=== PATIENT | female | born 1925 | race Caucasian/White ===

== ENCOUNTER 2016-11-04 08:59 | Outpatient (CLI) | payer MEDICARE ==
[2016-11-04 12:39] LABS: #Eosinphils 0.1 thou/uL (0.0-0.7); #Lymphocytes 2.4 thou/uL (1.20-3.40); #Monocytes 0.6 thou/uL (0.11-0.59); #Neutrophils 2.6 thou/uL (1.40-6.50); %Basophils 0.6 % (0.0-1.0); %Eosinophils 1.3 % (0.0-10.0); %Lymphocytes 42.1 % (21.0-51.0); %Monocytes 10.5 % (0.0-10.0); Hematocrit 40.1 % (36.0-47.0); Mean Platelet Volume 6.4 fL (7.4-10.4); Red Blood Cell (RBC) Count 4.38 mill/uL (4.20-5.40); White Blood Cell (WBC) Count 5.7 thou/uL (4.8-10.8)
[2016-11-04 13:08] LABS: ALT (SGPT) 11 U/L (0-55); AST (SGOT) 22 U/L (5-34); Alkaline Phosphatase 67 U/L (40-150); Anion Gap 14 mmol/L (10-20); BUN (Urea Nitrogen) 16 mg/dL (9.8-20.1); Bilirubin, Direct 0.2 mg/dL (0.1-0.3); Bilirubin, Total 0.4 mg/dL (0.2-1.2); Calc. Creatinine Clearance 0 mL/min (70-130); Calcium 9.1 mg/dL (7.8-10.44); Carbon Dioxide 25 mmol/L (23-31); Chloride 102 mmol/L (98-107); Estimated GFR-MDRD 59; LDL Cholesterol, Calculated 91 mg/dL; Protein, Total 7.5 g/dL (5.8-8.1)
[2016-11-04 13:11] LABS: Hemoglobin A1c 5.5 % (4.0-6.0)
== END 2016-11-04 09:00 | disposition home or self-care (01) ==
LOC: NAVSJIPCSP 08:59
PROVIDERS: ATTEND Family Medicine
DX: E03.9 Hypothyroidism, unspecified (principal); R53.83 Other fatigue; R35.0 Frequency of micturition; E55.9 Vitamin D deficiency, unspecified; Z79.899 Other long term (current) drug therapy
CPT/HCPCS: 36415; 80048; 80061; 80076; 83036; 84443; 85025

== ENCOUNTER 2017-03-05 09:57 | Outpatient (CLI) | payer MEDICARE ==
[2017-03-05 12:59] LABS: #Eosinphils 0.1 thou/uL (0.0-0.7); #Lymphocytes 2.4 thou/uL (1.20-3.40); #Monocytes 0.5 thou/uL (0.11-0.59); #Neutrophils 1.8 thou/uL (1.40-6.50); %Basophils 0.5 % (0.0-1.0); %Eosinophils 1.6 % (0.0-10.0); %Lymphocytes 49.6 % (21.0-51.0); %Monocytes 10.7 % (0.0-10.0); %Neutrophils 37.5 % (42.0-75.0); Hemoglobin 11.7 g/dL (12.0-16.0); Mean Corpuscular HGB CONC 31.9 g/dL (32.0-36.0); Mean Corpuscular Hemoglobin 28.4 pg (27.0-31.0); Mean Corpuscular Volume 89.3 fl (81.0-99.0); Mean Platelet Volume 6.1 fL (7.4-10.4); Platelet Count 276 thou/uL (130-400); RBC Distribution Width 13.6 % (11.5-14.5); Red Blood Cell (RBC) Count 4.13 mill/uL (4.20-5.40); White Blood Cell (WBC) Count 4.9 thou/uL (4.8-10.8)
[2017-03-05 13:20] LABS: Hemoglobin A1c 5.7 % (4.0-6.0)
[2017-03-05 13:32] LABS: ALT (SGPT) 10 U/L (8-55); AST (SGOT) 22 U/L (5-34); Albumin 3.4 g/dL (3.4-4.8); Alkaline Phosphatase 59 U/L (40-150); Anion Gap 13 mmol/L (10-20); BUN (Urea Nitrogen) 16 mg/dL (9.8-20.1); Bilirubin, Direct 0.2 mg/dL (0.1-0.3); Bilirubin, Total 0.5 mg/dL (0.2-1.2); Calc. Creatinine Clearance 0 mL/min (70-130); Calcium 8.8 mg/dL (7.8-10.44); Carbon Dioxide 23 mmol/L (23-31); Cardiac Risk 3.3 (Less than 4.5); Chloride 105 mmol/L (98-107); Cholesterol 154 mg/dl (< 200 Desired); Estimated GFR-MDRD 63; Glucose 78 mg/dL (83-110); HDL Cholesterol 46 mg/dL (>60 Neg Risk); LDL Cholesterol, Calculated 86 mg/dL; Potassium 4.9 mmol/L (3.5-5.1); Protein, Total 7.4 g/dL (6.0-8.3); Sodium 136 mmol/L (136-145); Triglycerides 110 mg/dL (Less than 150)
== END 2017-03-05 09:58 | disposition home or self-care (01) ==
LOC: NAVSJIPCSP 09:57
PROVIDERS: ATTEND Family Medicine
DX: E03.9 Hypothyroidism, unspecified (principal); R53.83 Other fatigue; R35.0 Frequency of micturition; E55.9 Vitamin D deficiency, unspecified; Z79.899 Other long term (current) drug therapy
CPT/HCPCS: 36415; 80048; 80061; 80076; 83036; 84443; 85025

== ENCOUNTER 2017-11-23 14:48 | Emergency (ER) | payer MEDICARE ==
--- NOTE | 2017-11-23 16:16 | CT ---
CT BRAIN WITHOUT CONTRAST: Date: 11/23/17 HISTORY: Injury. Fall. COMPARISON: None. FINDINGS: No acute territorial infarct or hemorrhage. No midline shift or mass effect. Advanced microvascular i schemic changes. Mild atrophy. There is a small focus of midline forehead subcutaneous gas. IMPRESSION: Midline forehead soft tissue contusion and laceration with small focus of gas. No acute post-traumati c intracranial sequelae. POS: [facility]
--- NOTE | 2017-11-23 16:24 | CT ---
CT FACE NONCONTRAST: Date: 11/23/17 HISTORY: Cough. Head injury. FINDINGS: The mandible, globes, and zygomatic arches are intact. Tiny pocket of gas is associated with lacerati on at the frontal midline scalp. No depressed skull fracture. Subtle irregularity of the tip of the n lalo bones result in minimal angulation. Small pocket of gas is associated with the left nasal bone i njury. IMPRESSION: Nondisplaced nasal bone tip fracture, favored to be acute. POS: [facility]
--- NOTE | 2017-11-23 16:27 | CT ---
CT CERVICAL SPINE: Date: 11/23/17 Axial images are obtained with coronal and sagittal reconstructions. FINDINGS: There is a great deal of motion artifact at multiple levels, resulting in the appearance of fractures ; however, the odontoid fracture does not appear to be present on the facial CT. There is extensive m otion artifact in the rest of the cervical spine. I do recommend that CT of the cervical spine be rep eated as there is too much motion at this time to exclude the possibility of cervical spine fractures . I suspect that these are likely artifactual; however, correlate with repeat exam. IMPRESSION: Inadequate cervical spine CT due to patient motion. POS: [facility]
== END 2017-11-23 17:21 | disposition home or self-care (01) ==
LOC: NAV ERS 14:48
DX: S02.2XXA Fracture of nasal bones, initial encounter for closed fracture (principal); S00.83XA Contusion of other part of head, initial encounter; I10 Essential (primary) hypertension; E03.9 Hypothyroidism, unspecified; Z79.899 Other long term (current) drug therapy; W01.198A Fall on same level from slipping, tripping and stumbling with subsequent striking against other object, initial encounter; Y92.242 Post office as the place of occurrence of the external cause
CPT/HCPCS: 70450; 70486; 72125